=== PATIENT | female | born 1995 ===

== ENCOUNTER → 2021-01-26 | Outpatient (CLI) | payer OTHER ==
--- NOTE | 2021-01-26 18:57 | CONS ---
CONSULTATION DATE OF SERVICE: 01/26/2021 This 25-year-old lady has been evaluated in [facility] for possible obstructive sleep apnea-hypopnea syndrome. HISTORY OF PRESENT ILLNESS/SLEEP-WAKE EVALUATION: Patient's usual sleep schedule on weekdays is from 11 p.m. to 8:10 a.m. and on weekends from midnight until 10:30 a.m. She does have problems with falling asleep, although no TV in bedroom. She sleeps on the side position and stomach position. She snores and she wakes up from sleep 3 times; she could wake up up to 4 times with episodes of grinding teeth. She also mentioned that while she is falling asleep recently she has episodes of gasping for air, and this was the reason why she came to Sleep Center for evaluation. She may have a rare nap in the afternoon. [place] Sleepiness Scale is 5. She may drink one caffeinated beverage during the day. MEDICATIONS: None. PAST SURGICAL HISTORY: [place] teeth removed. FAMILY HISTORY: Hypertension, heart problems, sinus problems, sleep apnea, liver problems, thyroid problems. REVIEW OF SYSTEMS: No fevers. No double vision. No recent chest pain. No shortness of breath. No abdominal pain. No bleeding episodes. No blood in the urine. No seizure episodes. Multiple awakenings from sleep. PHYSICAL EXAMINATION: GENERAL: A pleasant lady without distress. VITAL SIGNS: BP 134/9, HR 94, RR 12, height 5 feet 3 inches, weight 143, BMI 25.3, temperature 98.2, oxygen saturation at room air 98%. HEENT: PERRLA, EOMI. Evaluation of oropharynx showed tongue protrudes midline. Low position of soft palate. Mallampati III. NECK: Supple. No JVD. Thyroid is not palpable. LUNGS: Clear to percussion and to auscultation. Good air exchange. No wheezing or rhonchi. HEART: S1, S2 regular. No murmurs, gallops or rubs. ABDOMEN: Soft and nontender. Bowel sounds are present. No organomegaly appreciated. EXTREMITIES: No clubbing or cyanosis. SPLICER MACHINE OPERATOR: Awake, alert, and oriented X3. Cranial nerves 2 to 7 intact. There is no fasciculation or atrophy. noted. No focal deficits observed. IMPRESSION: 1. Snoring, multiple awakenings from sleep, low position of soft palate, episodes of gasping for air; possible obstructive sleep apnea-hypopnea syndrome. 2. Slightly increased blood pressure in the office today. 3. Status post recent wisdom tooth removal in July 2020. 4. Possible sleep delay syndrome. 5. Psychophysiological insomnia. PLAN: 1. Home sleep apnea test to check the patient's breathing during sleep. 2. Sleep hygiene with regular time in bed for 7-1/2 to 8 hours. 3. No driving if feeling any sleepiness. 4. As much as possible, bright light exposure in the morning. 5. Psychological techniques for treatment of insomnia should include stimulus control, paradoxical intention, worry time and no watching clock. Thank you very much for referring this patient for consultation. Sincerely, Carlos Jasso MD, PhD, FAASM Diplomat of [employer] [employer] Program Support Clerk of [facility] [place] [id number] / IJN: [id number] /

== ENCOUNTER → 2021-04-06 | Outpatient (CLI) | payer OTHER ==
--- NOTE | 2021-04-06 22:08 | SFUN ---
SLEEP CENTER FOLLOW UP NOTE DATE OF SERVICE: 04/06/2021 25 -year-old lady has been followed in Sleep Center to discuss results of the home sleep apnea test and following plan. I discussed results of sleep study with the patient in detail. No significant abnormalities of respiration documented. Total apnea-hypopnea index only 0.42, which is totally normal. Normal oxygenation during the sleep. Oxygen level was above 93%. I again discussed with the patient psychological techniques for treatment of possible psychophysiological insomnia including stimulus control, paradoxical intention, worry time. I discussed with her possibility to use additional bright light in the morning because of possible sleep delayed syndrome. [place] Sleepiness Scale is 5, which is normal. MEDICATIONS: None. PHYSICAL EXAMINATION: GENERAL: Patient in no distress. BP 111/69, HR 76, RR 15, height 5 feet 3-1/3 inches, weight 141.6 pounds, temperature 97.1. Oxygen saturation at room air 97%. Oropharynx moderately low position of soft palate. Mallampati 3. NECK: Supple, no JVD. Thyroid is not palpable. LUNGS: Clear to percussion and to auscultation. Good air exchange. No wheezing or rhonchi. HEART: S1, S2 regular. No murmurs, gallops, or rubs. ABDOMEN: Soft and nontender. Bowel sounds are present. No organomegaly appreciated. EXTREMITIES: No clubbing or cyanosis. CUSTOMER SERVICE ADMINISTRATOR: Awake, alert, and oriented X3. Cranial nerves 2 to 7 intact. There is no fasciculation or atrophy. noted. No focal deficits observed. IMPRESSION: 1. No significant respiratory abnormalities by results of home sleep apnea test. 2. Psychophysiological insomnia. 3. Possibly sleep delay syndrome. 4. Normal blood pressure during physical exam today. PLAN: 1. Psychological techniques for treatment of insomnia has been discussed with the patient: Stimulus control, paradoxical intention, worry time, no watching clock at night. 2. Bright light in the exposure to the more bright light in the morning. 3. More exercise during the day. 4. Sleep hygiene with regular time in bed for 8 hours. 5. No driving if feeling sleepiness. 6. Follow-up visit in 6 months. Thank you very much for allowing me to participate in management of your patient. Sincerely, Carlos Jasso MD, PhD, FAASM Diplomat of [employer] Sleep Medicine Board of [employer] Marriage Performer of [facility] [place] [id number] / IJN: [id number] /
== END | disposition home or self-care (01) ==
LOC: SLEEP 16:01
PROVIDERS: ATTEND Internal Medicine
DX: G47.00 Insomnia, unspecified (principal)